=== PATIENT | male | born 1940 | race Caucasian/White ===

== ENCOUNTER 2022-05-25 18:19 | Emergency (ER) | payer MEDICARE, BC, SELFPAY ==
--- NOTE | 2022-05-25 18:43 | ED.GENADULT ---
HPI - General Adult General Time Seen by Provider: 18:43 Date Seen: 05/25/22 Chief complaint: Weakness Stated complaint: Covid+, Weakness Time Seen by Provider: 05/25/22 18:39 Source: patient, RN notes reviewed and old records reviewed Mode of arrival: ambulatory Limitations: no limitations History of Present Illness HPI narrative: 82-year-old male who presents today with generalized weakness. Patient noted headache and body aches starting 3 days ago, 2 days ago took a COVID test which was positive. Complains of nasal congestion and sore throat, cough. No chest pain, shortness of breath, nausea, vomiting, or diarrhea. Tried taking aspirin for this with no improvement, took ibuprofen this morning with improvement of his headache and body aches. Has not taken anything since then. Reports fever to 105?. Related Data Allergies Allergy/AdvReac Type Severity Reaction Status Date / Time No Known Drug Allergies Allergy Verified 05/25/22 18:50 Review of Systems Status of ROS: Reports: 10 or more systems reviewed and unremarkable except as noted in History and below PFSH PFSH Social History Smoking Status: Never smoker Do you use any of these nicotine containing products: None Second hand tobacco smoke exposure: No How often do you have a drink containing alcohol: never How often do you have six or more drinks on one occasion: Never AUDIT-C Alcohol total score: 0 Non-prescribed substance use: denies use service: Yes Exam Narrative: Exam Narrative: General: Well-developed and well-nourished, no acute distress Head: Atraumatic and normocephalic Eyes: Pupils are equal reactive, extraocular motions intact, conjunctiva clear ENT: External nose and ears are normal, posterior pharynx without erythema or exudate Neck: No midline cervical tenderness, full spontaneous range of motion the neck, trachea midline, no adenopathy Heart: Regular rate and rhythm no murmurs or thrills Lungs: Clear to auscultation bilaterally without wheezes or crackles Abdomen: Soft, nontender, nondistended with active bowel sounds Musculoskeletal: No tenderness, deformity, or edema Neurologic: Awake, alert, and oriented x3, no gross focal neurologic deficits, cranial nerves intact as tested Psych: Mood and affect are appropriate Skin: No rashes Const: Vital Signs, click to edit/add: Vital Signs - 24 hr 05/25/22 18:51 Temperature 99.6 F Pulse Rate [Pulse Oximeter] 94 Respiratory Rate 24 Blood Pressure [Le ft Upper Arm] 134/83 Pulse Oximetry 98 Oxygen Delivery Me thod Room Air Course Course Hospital Course: Patient seen examined, prior records are reviewed. Differential diagnosis includes but not limited to COVID infection, influenza, urinary tract infection, electrolyte disturbance, dehydration. Patient recently diagnosed with COVID in now with generalized weakness. No hypoxia or respiratory distress, no tachycardia. Appears comfortable, lungs are clear. Fluids, Toradol, Decadron are given and plan to discharge with continued symptom treatment at home. Reevaluation(s) Reevaluation #1: Patient feels better after treatment. No respiratory distress, hypoxia, or increased work of breathing. Tolerating oral intake. Stable for discharge. Time: 20:30 Vital Signs Vital signs: Initial Vital Signs Temperature 99.6 F 05/25/22 18:51 Temperature Source Temporal Artery Scan 05/25/22 18:51 Pulse Rate 94 05/25/22 18:51 Pulse Rhythm 05/25/22 18:51 Respiratory Rate 24 05/25/22 18:51 Blood Pressure 134/83 05/25/22 18:51 Blood Pressure Mean 100 05/25/22 18:51 Blood Pressure Position Supine 05/25/22 18:51 Pulse Oximetry 98 05/25/22 18:51 Oxygen Delivery Method 05/25/22 18:51 Vital Signs Temperature 99.6 F 05/25/22 18:51 Pulse Rate 94 05/25/22 18:51 Respiratory Rate 24 05/25/22 18:51 Blood Pressure 134/83 05/25/22 18:51 Pulse Oximetry 98 05/25/22 18:51 Oxygen Delivery Method 05/25/22 18:51 Temperature 99.6 F 05/25/22 18:51 Pulse Rate 94 05/25/22 18:51 Respiratory Rate 24 05/25/22 18:51 Blood Pressure 134/83 05/25/22 18:51 Pulse Oximetry 98 05/25/22 18:51 Oxygen Delivery Method 05/25/22 18:51 Medical Decision Making Medical Records Medical records reviewed: Yes I reviewed the patient's medical records Lab Data Lab results reviewed: Yes I reviewed the patient's lab results Discharge Plan Discharge Clinical Impression: COVID-19 virus infection Patient Disposition: Home, Self-Care Condition: Stable Instructions: COVID-19 (Coronavirus Disease 2019) (ED) Additional Instructions: Continue Tylenol and ibuprofen alternating every 3 hours Lots of fluids and rest Return to the emergency department if you develop breathing difficulty, cannot tolerate oral intake, other concerns Activity Level: No Restrictions Discharge Diet: Regular Follow Up/Referrals: Oswald Saul MD [Primary Care Provider] - Stand Alone Forms: [employer] Info Instructions
[2022-05-25 18:51] VITALS: BP 134/83; PULSE 94; RESP 24; TEMP 37.6; O2SAT 98; BMI 23.7
[2022-05-25 19:30] VITALS: BP 121/69; PULSE 90; RESP 16; O2SAT 93
[2022-05-25] MEDS: 0.9 % SODIUM CHLORIDE 1000 ml 1,000 ML IV (19:35)
[2022-05-25] MEDS: KETOROLAC 15 MG/ML inj IVP (19:36)
[2022-05-25] MEDS: dexAMETHasone 10 MG/ML inj 6 MG IVP (19:36)
[2022-05-25 20:00] VITALS: BP 124/72; PULSE 88; RESP 18; TEMP 38.1; O2SAT 94
[2022-05-25 20:39] VITALS: BP 131/74; PULSE 83; RESP 16; O2SAT 94
== END 2022-05-25 21:01 | disposition home or self-care (01) ==
LOC: ED 19:28
PROVIDERS: Emergency Provider Family Medicine; PCP Family Medicine
DX: U07.1 COVID-19 (principal)
CPT/HCPCS: 96374; 96375; 99283; 99284; J1100; J1885; J7030

== ENCOUNTER 2023-02-09 11:17 | Inpatient (IN) | payer MEDICARE, BC, SELFPAY ==
[2023-02-09 11:32] VITALS: O2SAT 96
[2023-02-09 11:33] VITALS: BP 113/73; PULSE 91; RESP 18; TEMP 37; O2SAT 95
--- NOTE | 2023-02-09 11:49 | ED_ITS ---
HPI - General Adult General Chief complaint: Rib Pain Stated complaint: Possibly broken ribs Time Seen by Provider: 02/09/23 11:49 History of Present Illness HPI narrative: pt was leaning over the gate of a truck Sunday and felt pain in his right ribs, fornt and back of chest hurt with breathing and movement 83-year-old man presenting to the emergency department with complaint of spasms of pain in the right low anterior chest. Three days ago he had been leaning over the gate a truck with this right side and reached a little bit farther. Did not think much of it at the time but over the next couple of days increasing pain. Hurts to breathe or move. He typically has a rather high pain tolerance. Not complaining of lightheadedness. Has not had much to eat or drink really having to force himself over the last couple of days due to discomfort. Does report some discomfort into his right shoulder area as well. He otherwise is not describing any radicular symptoms i.e. into extremities. This was not a high impact event. Generally healthy. Does not take any medications. Related Data Previous Rx's Medication Instructions Recorded acetaminophen 325 mg tablet 650 mg (2 x 325 mg) PO QID 10 days 02/14/23 #80 tabs Allergies Allergy/AdvReac Type Severity Reaction Status Date / Time No Known Drug Allergies Allergy Verified 10/22/22 22:51 Review of Systems Status of ROS: Reports: 6 or more systems reviewed and unremarkable except as noted in History and below [facility] Medical History (Updated 02/14/23 @ 15:33 by Hayden Romero MD) Schatzki's ring ?K22.2 - Esophageal obstruction (ICD-10) Esophageal obstruction due to food impaction ?K22.2 - Esophageal obstruction (ICD-10) ?T18.128A - Food in esophagus causing other injury, initial encounter (ICD- 10) COVID-19 virus infection ?U07.1 - COVID-19 (ICD-10) Surgical History (Updated 02/09/23 @ 18:46 by Ashely Vickers MD) S/P ORIF (open reduction internal fixation) fracture ?Z98.890 - Other specified postprocedural states (ICD-10) ?Z87.81 - Personal history of (healed) traumatic fracture (ICD-10) History of cataract surgery ?Z98.49 - Cataract extraction status, unspecified eye (ICD-10) Hx of hernia repair ?Z98.890 - Other specified postprocedural states (ICD-10) ?Z87.19 - Personal history of other diseases of the digestive system (ICD-10) Hx of cholecystectomy ?Z90.49 - Acquired absence of other specified parts of digestive tract (ICD- 10) Hx of appendectomy ?Z90.49 - Acquired absence of other specified parts of digestive tract (ICD- 10) Social History (Updated 02/09/23 @ 18:48 by Ashely Vickers MD) Narrative: Lives independently. since summer 2022. Has three adult sons would share medical decision making duties if needed. Retired gam[employer]. No concerning tobacco or ETOH use. Full Code but would not want to be on a machine for any extended period of time. What is your current living situation?: I presently have a place to live Problems where you live: no known problems Problems where you live details: NA In the past 12 months, utilities in danger of being shut off: no In the past 12 mos, have been you worried that your food would run out before you had money to buy more?: never true In the past 12 mos, the food you bought just didn't last and you didn't have m oney to buy more?: never true Highest level of school completed/degree received: Associate degree: occupational, technical, vocational program Smoking Status: Never smoker Do you use any of these nicotine containing products: None Second hand tobacco smoke exposure: No How often do you have a drink containing alcohol: never How often do you have six or more drinks on one occasion: Never AUDIT-C Alcohol total score: 0 Non-prescribed substance use: denies use Caffeine: Yes How often does anyone, including family, friends and others, physically hurt you : never How often does anyone, including family, friends and others, insult or talk down to you: never How often does anyone, including family, friends and others, threaten you with harm: never How often does anyone, including family, friends and others, scream or curse at you: never service: Yes Exam Narrative: Exam Narrative: Accompanied here by his son. Seated upright at the edge of the bed blanket over shoulders hunched forward just a little bit. Splinting in apparent pain. Does wince with apparent spasm of pain. Skin is warm and dry. I do not appreciate any swelling, erythema, bruising over his chest. Well-perfused extremities. Moving all extremities really without difficulty although bringing his right leg in particular up to the bed causes pain. Neck is supple nontender. Back nontender. He is quite tender to palpation in the right low ribs lateral clavicle line. Also tender in the right upper quadrant abdomen. This gets tense and seems to be spasm is pain. Difficult to discern whether not that is independent of the room rib discomfort. Abdomen otherwise is soft and nontender. Lungs are clear though again splinting difficult to take a deep breath. Heart in a regular rate and rhythm. Does not have pain to palpation over the right upper back and shoulder and able to throw his arm up over his head without much difficulty. Const: Vital Signs, click to edit/add: Vital Signs - 24 hr 02/09/23 11:33 Temperature 98.6 F Pulse Rate [Right Pulse Oximeter] 91 Respiratory Rate 18 Blood Pressure [Ri ght Upper Arm] 113/73 Pulse Oximetry 95 Oxygen Delivery Me thod Room Air Documenting provider has reviewed patient's vital signs: yes Course Course Hospital Course: History of present illness: Young Coles is a 83 year old male who presented to the ED with his son this afternoon for concerns of right sided chest pain after a muscular injury at home. Three days ago, he was leaning with his right side over his truck and reaching for something. He had mild discomfort at the time, which has worsened throughout the last few days. Young describes the pain as a spasm in his right upper quadrant. He has not found any helpful remedies at home and he has not been able to sleep secondary to pain. No fever or symptoms of illness. Does occasionally feel chilled with his pain flares. Today, he was having difficulty breathing secondary to discomfort and called his PCPs office, who recommended ED visit. ER course and findings: - CT revealed a small subcapular fluid collection along the right liver, concerning for hematoma - No large liver laceration or hemorrhage, no known rib fractures - Incidentally right basilar pleural effusion with compressive atelectasis and/or infiltrates - hemodynamically stable - could not achieve pain control for discharge; patient received IV fentanyl and lorazepam but still was unable to ambulate - general surgery consulted, recommends monitoring and pain control Initially attempted to control pain with as needed acetaminophen and hydromorphone. Although the pain was in great measure treated sufficiently with the use of as needed hydromorphone and acetaminophen, he became markedly confused and tired and weak in consequence of these medications. He and his son's thought for sure was the acetaminophen. We discussed this and they were agreeable to attempt schedule acetaminophen and only as needed oral oxycodone at a low dose of 2.5 mg p.o. q.4 hours. Once we stopped using the opioids, his mentation rapidly normalized, and his weakness rapidly resolved. He was then able to demonstrate clearly his independence. Thus he is discharged home with follow-up as indicated. Vital Signs Vital signs: Initial Vital Signs Pulse Oximetry 96 02/09/23 11:32 Vital Signs Pulse Oximetry 96 02/09/23 11:32 Temperature 98.1 F 02/14/23 11:53 Pulse Rate 65 02/14/23 11:53 Respiratory Rate 16 02/14/23 11:53 Blood Pressure 117/61 02/14/23 11:53 Pulse Oximetry 94 02/14/23 11:53 Oxygen Delivery Method Room Air 02/14/23 11:53 Medical Decision Making MDM Narrative Medical decision making narrative: I am concerned regarding the degree of pain I am perceiving in somebody who I think has a rather high pain tolerance. Concern of potential liver laceration. I would suspect at a minimum rib tip injury with secondary muscle spasming. IV is established. I did discuss basic imaging and labs but more certainly would be obtained with CT imaging. Ultrasound I think still would result in further imaging I think. I think some IV hydration given lack of ability for self-care recently and will trial a dose of Dilaudid along with Lidoderm patch. Did take the edge off his pain a little. Persistent complaints though of spasms of pain prompted re-dosing of Dilaudid which did not help much either. Then with more pain needs prior to imaging once we cleared poc creatinine (reported to me as 0.4), given fentanyl and lorazepam. On reassessment, has been able to sleep but any movement markedly increases his pain again. CT imaging does show some liver cysts. No clear rib injury. No liver laceration however there is a small subcapsular bleed. Is able to very slowly ambulate with marked pain. Discuss this case with General surgery left though I can not imagine any intervention at this time. They concur. Will check baseline hemoglobin however I think that if anemia is present it is unlikely related to this bleed. I think the pain is probably more related to rib tip injury with resulting muscle spasm. Perhaps the ache in the shoulder is related to the subcapsular bleed. Have discussed with hospitalist for admission for pain control primarily. Medical Records Medical records reviewed: Yes I reviewed the patient's medical records Lab Data Lab results reviewed: Yes I reviewed the patient's lab results Labs: Lab Results 02/09/23 02/10/23 02/11/23 Range/Units 19:14 06:29 05:54 WBC 10.34 11.06 H 10.02 (4.50-11.00) K/uL RBC 4.30 4.15 L 4.03 L (4.30-5.90) m/uL Hgb 12.5 L 12.0 L 11.5 L (13.5-17.5) gm/dL Hct 38.5 37.3 35.9 L (37.0-53.0) % MCV 90 90 89 (80-100) fL MCH 29 29 29 (26-34) pg MCHC 33 32 32 (32-36) gm/dL RDW Coeff of Russell 12.6 12.5 12.4 (11.5-15.5) % Plt Count 292 284 300 (140-440) K/uL Neut % (Auto) 79.8 H 76.2 H 74.5 H (42.0-72.0) % Lymph % (Auto) 10.8 L 11.3 L 12.7 L (20-44) % [place] % (Auto) 7.4 10.1 9.9 (0.0-11.0) % Eos % (Auto) 1.4 1.9 2.4 (0.0-7.0) % Baso % (Auto) 0.5 0.3 0.3 (0.0-3.0) % Neut # (Auto) 8.30 H 8.40 H 7.50 H (1.7-7.0) K/uL Lymph # (Auto) 1.10 1.20 1.30 (0.90-2.90) K/uL [place] # (Auto) 0.80 1.10 H 1.00 H (0.00-0.90) K/UL Eos # (Auto) 0.14 0.20 0.24 (0.00-0.50) K/uL Baso # (Auto) 0.05 0.00 0.03 (0.00-0.30) K/uL Abs Immat Gran (auto) 0.01 0.00 0.02 (0.00-0.30) K/uL Imm/Tot Granulo (auto) 0.1 0.2 0.2 % INR 1.10 1.19 H (0.91-1.10) VBG pH (7.32-7.43) VBG pCO2 (40-50) mmHG VBG pO2 (25-47) mmHG VBG HCO3 (21-28) mmol/L Sodium 136 137 134 L (135-149) mmol/L Potassium 4.2 4.5 4.2 (3.6-5.1) mmol/L Chloride 103 103 102 (96-114) mmol/L Carbon Dioxide 25 26 25 (20-32) mmol/L Anion Gap 8 8 7 (7-15) mEq/L BUN 22 21 20 (7-30) mg/dL Creatinine 1.2 1.2 1.2 (0.5-1.5) mg/dL Estimated Creat Clear 46.05 46.05 46.05 Estimated GFR 59 59 59 ml/min Glucose 143 H 105 106 (60-115) mg/dL Calcium 8.5 8.7 8.3 L (8.4-10.6) mg/dL Total Bilirubin 0.7 0.6 0.6 (0.1-1.5) mg/dL Direct Bilirubin 0.0 (0.0-0.5) mg/dL AST 20 19 20 (12-35) U/L ALT 16 16 16 (4-50) U/L Alkaline Phosphatase 74 75 70 (40-150) U/L C-Reactive Protein 18.4 H (0.5-1.0) mg/dL Total Protein 6.8 6.5 6.1 (6.0-8.3) g/dL Albumin 3.6 3.5 3.1 L (3.3-5.0) g/dL Lab Acknowledgement 02/11/23 02/12/23 Range/Units 14:07 06:04 WBC (4.50-11.00) K/uL RBC (4.30-5.90) m/uL Hgb 11.0 L (13.5-17.5) gm/dL Hct (37.0-53.0) % MCV (80-100) fL MCH (26-34) pg MCHC (32-36) gm/dL RDW Coeff of Russell (11.5-15.5) % Plt Count (140-440) K/uL Neut % (Auto) (42.0-72.0) % Lymph % (Auto) (20-44) % [place] % (Auto) (0.0-11.0) % Eos % (Auto) (0.0-7.0) % Baso % (Auto) (0.0-3.0) % Neut # (Auto) (1.7-7.0) K/uL Lymph # (Auto) (0.90-2.90) K/uL [place] # (Auto) (0.00-0.90) K/UL Eos # (Auto) (0.00-0.50) K/uL Baso # (Auto) (0.00-0.30) K/uL Abs Immat Gran (auto) (0.00-0.30) K/uL Imm/Tot Granulo (auto) % INR (0.91-1.10) VBG pH 7.405 (7.32-7.43) VBG pCO2 42 (40-50) mmHG VBG pO2 42.0 (25-47) mmHG VBG HCO3 26 (21-28) mmol/L Sodium 135 (135-149) mmol/L Potassium 4.5 (3.6-5.1) mmol/L Chloride 102 (96-114) mmol/L Carbon Dioxide 27 (20-32) mmol/L Anion Gap 6 L (7-15) mEq/L BUN 23 (7-30) mg/dL Creatinine 1.1 (0.5-1.5) mg/dL Estimated Creat Clear 50.24 Estimated GFR 66 ml/min Glucose 98 (60-115) mg/dL Calcium 8.7 (8.4-10.6) mg/dL Total Bilirubin (0.1-1.5) mg/dL Direct Bilirubin (0.0-0.5) mg/dL AST (12-35) U/L ALT (4-50) U/L Alkaline Phosphatase (40-150) U/L C-Reactive Protein 15.9 H (0.5-1.0) mg/dL Total Protein (6.0-8.3) g/dL Albumin (3.3-5.0) g/dL Lab Acknowledgement Test Added Discharge Plan Discharge Clinical Impression: Rib pain on right side, Muscle spasm, Subcapsular hematoma of liver Patient Disposition: Admitted As Observation Discharge Location: [facility] Condition: Improved Activity Level: No Restrictions, Activity as Tolerated and Other Activity Detail: Avoid jarring events, blunt trauma, or heavy pressure to area of involvement of right chest and abdomen. Discharge Diet: Regular
--- NOTE | 2023-02-09 12:25 | CRLHL7_ITS ---
For Patients: As a result of the Century Cures Act, medical imaging exams and procedure reports are released immediately into your electronic medical record. You may view this report before your referring provider. If you have questions, please contact your health care provider. Indication: Evaluate for right lower rib, liver injury, right-sided abdominal pain Technique: Volumetric multidetector CT images of the abdomen were obtained after the administration of intravenous contrast. 83 cc Isovue 370 low osmolar intravenous contrast Comparison: None available. Findings: There is a small right basilar pleural effusion with compressive atelectasis and/or infiltrates within the lung bases. The partially visualized ribs are grossly intact. There is demonstration of a minimal subcapsular fluid collection along the right liver. Cystic change of the inferior right liver lobe is appreciated. There is mild intrahepatic biliary ductal dilatation. The portal vein is patent. The gallbladder is surgically absent. There is dilated common bile duct. Calcified splenic granulomas. The spleen is otherwise normal in enhancement. There is a small hiatal hernia with mild thickening of the gastric antrum with gastric mucosal hyperemia. There is moderate pancreatic atrophy with demonstration of pancreatic cystic changes within the pancreatic head measuring 1.7 centimeters likely representing an IPMN. The adrenal glands are unremarkable. The kidneys demonstrate preserved corticomedullary differentiation and cystic changes bilaterally. There is moderate to severe stool seen within the partially visualized colon. There is no significant mesenteric or retroperitoneal lymph nodes. The aorta is nonaneurysmal. There is no significant atherosclerotic disease appreciated. There is no free fluid or free air. The anterior abdominal wall is intact without significant hernias. The thoracolumbar spine is grossly intact. The vertebral body heights are grossly maintained with minimal retrolisthesis of L1 on L2. Impression: Demonstration of a small subcapsular fluid collection along the right liver which may represent a small subcapsular hematoma. No evidence of large liver laceration or hemorrhage. Grossly intact adjacent ribs. Incidental note made of right basilar pleural effusion with adjacent compressive atelectasis and/or infiltrates. No other acute abnormalities are appreciated. Please note that all CT scans at this facility use dose modulation, iterative reconstruction, and/or weight-based dosing when appropriate to reduce radiation dose to as low as reasonably achievable. Dictated by Shane Son MD @ 02/09/2023 3:33:35 PM (Electronically Signed)
[2023-02-09] MEDS: 0.9 % SODIUM CHLORIDE 1000 ml 1,000 ML IV (13:03)
[2023-02-09] MEDS: HYDROmorphone 0.5 mg/0.5 ml inj IVP ×2 (13:03→13:51)
[2023-02-09] MEDS: LIDOCAINE 5% PATCH 1 PATCH TRANSDERMA (13:04)
[2023-02-09] MEDS: LORazepam 2 MG/ML inj 0.5 MG IVP (14:45)
[2023-02-09] MEDS: fentaNYL 100 MCG/2 ML inj 75 MCG IVP (14:45)
--- NOTE | 2023-02-09 17:37 | ED.NURSE ---
Pt declined pain medications before coming to med surg floor. Pt does state he is hungry. Report given to med/surg nurse. Pt transporting at this time to floor.
[2023-02-09 18:37] VITALS: BP 133/71; PULSE 91; RESP 16; RESP 18; TEMP 37.6; O2SAT 94; BMI 21.6
--- NOTE | 2023-02-09 18:43 | P.IMHP_ITS ---
Hospitalist- H&P: HPI History of Present Illness Date Seen: 02/09/23 Chief complaint: Possibly broken ribs Narrative: Young Coles is a 83 year old male who presented to the ED with his son this afternoon for concerns of right sided chest pain after a muscular injury at home. Three days ago, he was leaning with his right side over his truck and reaching for something. He had mild discomfort at the time, which has worsened throughout the last few days. Young describes the pain as a spasm in his right upper quadrant. He has not found any helpful remedies at home and he has not been able to sleep secondary to pain. No fever or symptoms of illness. Does occasionally feel c hilled with his pain flares. Today, he was having difficulty breathing secondary to discomfort and called his PCPs office, who recommended ED visit. ER course and findings: - CT revealed a small subcapular fluid collection along the right liver, concerning for hematoma - No large liver laceration or hemorrhage, no known rib fractures - Incidentally right basilar pleural effusion with compressive atelectasis and/or infiltrates - hemodynamically stable - could not achieve pain control for discharge; patient received IV fentanyl and lorazepam but still was unable to ambulate - general surgery consulted, recommends monitoring and pain control Medical history is minimal and updated below. No history of spontaneous bleeding, no history of blood clots. PCP is Dr. Saul locally. Review of Systems Status of ROS: Reports: 10 or more systems reviewed and unremarkable except as noted in History and below Narrative: - has not had a BM this week, thinks this is related to not eating [facility] Medical History (Updated 02/09/23 @ 18:57 by Ashely Vickers MD) Schatzki's ring ?K22.2 - Esophageal obstruction (ICD-10) Esophageal obstruction due to food impaction ?K22.2 - Esophageal obstruction (ICD-10) ?T18.128A - Food in esophagus causing other injury, initial encounter (ICD- 10) COVID-19 virus infection ?U07.1 - COVID-19 (ICD-10) Surgical History (Updated 02/09/23 @ 18:46 by Ashely Vickers MD) S/P ORIF (open reduction internal fixation) fracture ?Z98.890 - Other specified postprocedural states (ICD-10) ?Z87.81 - Personal history of (healed) traumatic fracture (ICD-10) History of cataract surgery ?Z98.49 - Cataract extraction status, unspecified eye (ICD-10) Hx of hernia repair ?Z98.890 - Other specified postprocedural states (ICD-10) ?Z87.19 - Personal history of other diseases of the digestive system (ICD-10) Hx of cholecystectomy ?Z90.49 - Acquired absence of other specified parts of digestive tract (ICD- 10) Hx of appendectomy ?Z90.49 - Acquired absence of other specified parts of digestive tract (ICD- 10) Social History (Updated 02/09/23 @ 18:48 by Ashely Vickers MD) Narrative: Lives independently. since summer 2022. Has three adult sons would share medical decision making duties if needed. Retired [employer]. No concerning tobacco or ETOH use. Full Code but would not want to be on a machine for any extended period of time. Smoking Status: Never smoker Do you use any of these nicotine containing products: None Second hand tobacco smoke exposure: No How often do you have a drink containing alcohol: never How often do you have six or more drinks on one occasion: Never AUDIT-C Alcohol total score: 0 Non-prescribed substance use: denies use service: Yes Meds Home Medications and Allergies Home Medications Medication Instructions Recorded Confirmed Type No Known Home Medications 02/09/23 02/09/23 History Home Medication Comments: No regular medications Allergies Allergy/AdvReac Type Severity Reaction Status Date / Time No Known Drug Allergies Allergy Verified 10/22/22 22:51 Exam Narrative: Exam Narrative: GEN: Alert and oriented, appears uncomfortable but nontoxic HEENT: EOMIs bilaterally, no scleral icterus CV: RRR, No concerning murmurs R: LCTA bilaterally without concerning wheezing. Not taking a deep breath 2/2 discomfort Ab: Guarding 2/2 discomfort, no distension Ext: wwp, no concerning edema Skin: No concerning skin lesions or rashes on exposed skin Neuro: Nonfocal Psych: Appropriate Const: Vital Signs, click to edit/add: Vital Signs - 24 hr 02/09/23 11:32 02/09/23 11:33 Temperature 98.6 F Pulse Rate [Right Pulse Oximeter] 91 Respiratory Rate 18 Blood Pressure [Ri ght Upper Arm] 113/73 Pulse Oximetry 96 95 Oxygen Delivery Me thod Room Air Assessment and Plan Assessment and plan (1) Subcapsular hematoma of liver: Problem comment: - follow hemoglobin, INR, LFTs - pain control - therapy evaluations - IS for associated atelectasis on imaging Status: Acute (2) Muscle spasm: Status: Acute Plan - Per above - SCDs for prophylaxis, pharmacologic prophylaxis contraindicated - son Norman updated at bedside, questions answered
[2023-02-09 19:00] VITALS: BP 120/60; PULSE 90; RESP 18; TEMP 37.9; O2SAT 94
--- NOTE | 2023-02-09 19:05 | PC.NURSE ---
Pt arrived to floor from ED around 1744. Pt alert and oriented. Pt has pain with movement/position and taking breathes. Son at bedside through out admission. VSS.
[2023-02-09 19:52] LABS: Basophils Absolute Auto 0.05 K/uL (0.00-0.30); Basophils Percent Auto 0.5 % (0.0-3.0); Eosinophils Absolute Auto 0.14 K/uL (0.00-0.50); Eosinophils Percent Auto 1.4 % (0.0-7.0); Hematocrit 38.5 % (37.0-53.0); Hemoglobin* 12.5 gm/dL (13.5-17.5); Immature Granulocytes Abs Auto 0.01 K/uL (0.00-0.30); Immature Granulocytes Pct Auto 0.1 %; Lymphocytes Percent Auto 10.8 % (20-44); Mean Corpuscular HGB Conc 33 gm/dL (32-36); Mean Corpuscular Hemoglobin 29 pg (26-34); Mean Corpuscular Volume 90 fL (80-100); Monocytes Percent Auto 7.4 % (0.0-11.0); Neutrophils Percent Auto 79.8 % (42.0-72.0); Platelet Count* 292 K/uL (140-440); RDW Coefficient of Variation % 12.6 % (11.5-15.5); White Blood Count* 10.34 K/uL (4.50-11.00)
[2023-02-09 19:55] LABS: Slide Review Reflex No
[2023-02-09 20:08] LABS: Albumin* 3.6 g/dL (3.3-5.0)
[2023-02-09 20:09] LABS: Chloride* 103 mmol/L (96-114); Potassium* 4.2 mmol/L (3.6-5.1); Prothrombin Time 14.8 Seconds; Sodium* 136 mmol/L (135-149)
[2023-02-09 20:11] LABS: Bilirubin Total* 0.7 mg/dL (0.1-1.5); Creatinine* 1.2 mg/dL (0.5-1.5); Est. Creatinine Clearance* 46.05; Estimated Glomerular Filt Rate 59 ml/min
[2023-02-09 20:12] LABS: Alanine Aminotransferase* 16 U/L (4-50); Alkaline Phosphatase* 74 U/L (40-150); Anion Gap 8 mEq/L (7-15); Aspartate Amino Transferase* 20 U/L (12-35); Blood Urea Nitrogen* 22 mg/dL (7-30); Calcium* 8.5 mg/dL (8.4-10.6); Carbon Dioxide* 25 mmol/L (20-32); Glucose* 143 mg/dL (60-115); Total Protein* 6.8 g/dL (6.0-8.3)
[2023-02-09] MEDS: OXYCODONE 5 MG TABLET PO (20:23)
[2023-02-09] MEDS: SODIUM CHLORIDE 0.9 % (FLUSH) 10 ML SYRINGE 5 ML IVF (20:28)
[2023-02-09 23:00] VITALS: BP 130/70; PULSE 89; RESP 16; TEMP 37.5; O2SAT 92; O2SAT 94
[2023-02-10] VITALS (8 sets, daily range): BP systolic 105–125; BP diastolic 47–75; PULSE 78–94; RESP 12–18; TEMP 36.1–37.5; O2SAT 92–97
[2023-02-10] MEDS: OXYCODONE 5 MG TABLET PO ×3 (00:42→13:15)
--- NOTE | 2023-02-10 03:41 | PC.NURSE ---
PATIENT PLEASANT AND COOPERATIVE, ALERT AND ORIENTED, UP A1, DECLINING TO USE A WALKER, SLOW TO MOVE, PER PATIENT THIS IS RELATED TO INCREASED PAIN ON RIGHT SIDE WITH MOVEMENT, RATING PAIN ON RIGHT SIDE AT REST 5/10 BUT UP TO 10/10 WITH MOVEMENT, USING PRN OXYCODONE AND REST FOR MANAGEMENT.
[2023-02-10 07:22] LABS: Basophils Percent Auto 0.3 % (0.0-3.0); Eosinophils Percent Auto 1.9 % (0.0-7.0); Hematocrit 37.3 % (37.0-53.0); Immature Granulocytes Pct Auto 0.2 %; Lymphocytes Percent Auto 11.3 % (20-44); Mean Corpuscular HGB Conc 32 gm/dL (32-36); Mean Corpuscular Hemoglobin 29 pg (26-34); Mean Corpuscular Volume 90 fL (80-100); Monocytes Percent Auto 10.1 % (0.0-11.0); Neutrophils Percent Auto 76.2 % (42.0-72.0); Platelet Count* 284 K/uL (140-440); RDW Coefficient of Variation % 12.5 % (11.5-15.5); Red Blood Count 4.15 m/uL (4.30-5.90); White Blood Count* 11.06 K/uL (4.50-11.00)
[2023-02-10 07:28] LABS: Slide Review Reflex No
[2023-02-10 07:42] LABS: Chloride* 103 mmol/L (96-114)
[2023-02-10 07:43] LABS: Albumin* 3.5 g/dL (3.3-5.0); Potassium* 4.5 mmol/L (3.6-5.1); Sodium* 137 mmol/L (135-149)
[2023-02-10 07:45] LABS: Bilirubin Total* 0.6 mg/dL (0.1-1.5); Creatinine* 1.2 mg/dL (0.5-1.5); Est. Creatinine Clearance* 46.05; Estimated Glomerular Filt Rate 59 ml/min
[2023-02-10 07:46] LABS: Alanine Aminotransferase* 16 U/L (4-50); Alkaline Phosphatase* 75 U/L (40-150); Anion Gap 8 mEq/L (7-15); Aspartate Amino Transferase* 19 U/L (12-35); Blood Urea Nitrogen* 21 mg/dL (7-30); Calcium* 8.7 mg/dL (8.4-10.6); Carbon Dioxide* 26 mmol/L (20-32); Glucose* 105 mg/dL (60-115); Total Protein* 6.5 g/dL (6.0-8.3)
[2023-02-10] MEDS: MORPHINE 4 MG/ML INJ IVP ×2 (08:53→16:28)
--- NOTE | 2023-02-10 09:55 | REH.OT ---
Orders received for PT/OT. Patient having pain issues and nursing requested therapies wait until on 02/11/23.
--- NOTE | 2023-02-10 10:11 | P.IMPN_ITS ---
Progress Note: A&P Assessment and plan (1) Subcapsular hematoma of liver: Problem details: - follow hemoglobin, INR, LFTs - pain control - therapy evaluations - IS for associated atelectasis on imaging anticipate will need short term rehab lives alone; recently Status: Acute Assessment and Plan: anticipate will need short term rehab lives alone; recently (2) Muscle spasm: Status: Acute (3) Rib pain on right side: Problem details: attemp cxr again this afternoon Status: Acute Subjective Date Seen: 02/10/23 Interval history: patient having increased RUQ/Rib pain was unable to tolerate cxr due to pain given IV morphine this AM son updated (visiting from [place]) was able to swallow oxycodone pills Exam Narrative: Exam Narrative: Gen: appears uncomfortable HEENT: NCAT EOMI mmm CV: RRR normal s1 s2 Lungs: CTAB Abd: Soft,nt, nd Neuro: Alert, CN grossly intact; nonfocal screening?exam Psych: appropriate affect MSK: age appropriate muscle mass Skin; Warm, dry no rash on face Const: Vital Signs, click to edit/add: Vital Signs - 24 hr 02/09/23 11:32 02/09/23 11:33 02/09/23 18:37 Temperature 98.6 F 99.6 F Pulse Rate [Pulse Oximeter] 91 Pulse Rate [Right Pulse Oximeter] 91 Respiratory Rate 18 18 Blood Pressure [Ri ght Arm] 133/71 Blood Pressure [Ri ght Upper Arm] 113/73 Pulse Oximetry 96 95 94 Oxygen Delivery Me thod Room Air Room Air 02/09/23 18:37 02/09/23 19:00 02/09/23 23:00 Temperature 100.3 F H Pulse Rate [Pulse Oximeter] 90 Pulse Rate [Right Pulse Oximeter] Respiratory Rate 16 18 16 Blood Pressure [Ri ght Arm] 120/60 Blood Pressure [Ri ght Upper Arm] Pulse Oximetry 94 94 Oxygen Delivery Me thod Room Air Room Air 02/09/23 23:00 02/09/23 23:00 02/10/23 03:00 Temperature 99.5 F Pulse Rate [Pulse Oximeter] 89 Pulse Rate [Right Pulse Oximeter] Respiratory Rate 16 16 Blood Pressure [Ri ght Arm] 130/70 Blood Pressure [Ri ght Upper Arm] Pulse Oximetry 94 92 Oxygen Delivery Me thod Room Air Room Air Labs Labs: Laboratory Results - last 24 hr 02/09/23 02/10/23 19:14 06:29 WBC 10.34 11.06 H RBC 4.30 4.15 L Hgb 12.5 L 12.0 L Hct 38.5 37.3 MCV 90 90 MCH 29 29 MCHC 33 32 RDW Coeff of Russell 12.6 12.5 Plt Count 292 284 Neut % (Auto) 79.8 H 76.2 H Lymph % (Auto) 10.8 L 11.3 L Cory[place] % (Auto) 7.4 10.1 Eos % (Auto) 1.4 1.9 Baso % (Auto) 0.5 0.3 Neut # (Auto) 8.30 H 8.40 H Lymph # (Auto) 1.10 1.20 Cory[place] # (Auto) 0.80 1.10 H Eos # (Auto) 0.14 0.20 Baso # (Auto) 0.05 0.00 Abs Immat Gran (auto) 0.01 0.00 Imm/Tot Granulo (auto) 0.1 0.2 INR 1.10 Sodium 136 137 Potassium 4.2 4.5 Chloride 103 103 Carbon Dioxide 25 26 Anion Gap 8 8 BUN 22 21 Creatinine 1.2 1.2 Estimated Creat Clear 46.05 46.05 Estimated GFR 59 59 Glucose 143 H 105 Calcium 8.5 8.7 Total Bilirubin 0.7 0.6 AST 20 19 ALT 16 16 Alkaline Phosphatase 74 75 Total Protein 6.8 6.5 Albumin 3.6 3.5
--- NOTE | 2023-02-10 14:06 | ONC.NURNOTE ---
Addendum entered by Lakisha Blank RN 02/10/23 14:44: using the IS hourly WA up to 1500. easily awaken. vs wnl. enc turn and ROM hourly. RT arm limited ROM due to RT side pain. Original Note: this am pt was in extreme pain. states he woke at 7am with pain of 10. md aware. MS 4mg iv and Oxycontin 5mg given with relief. cont o2 sats. kris a meal. vs wnl. LS clear. heart reg. note pt was unable to take tylenol crushed in applesauce. Was able to swallow small mill like oxy with water and straw. states took Flexeril years ago and it made him feel awful. stating heard words but didnt understand them. so hesitent to tale it again. enc him to put his call light on at night if in pain. enc tcdb and is able to get it to 100.
--- NOTE | 2023-02-10 15:10 | PC.NURSE ---
abd sl distended tympanic. no pain on palpitation. no guarding or abd pain. poss bs 4 quad. distant. denies pain. unsure of last bm or flatus. bladder scanned for 26cc.
--- NOTE | 2023-02-10 15:34 | CRLHL7_ITS ---
For Patients: As a result of the Century Cures Act, medical imaging exams and procedure reports are released immediately into your electronic medical record. You may view this report before your referring provider. If you have questions, please contact your health care provider. INDICATION: Follow up possible small hepatic subcapsular hematoma TECHNIQUE: Volumetric helical scanning of the abdomen and pelvis was performed without contrast material. Coronal and sagittal reconstructions were obtained. COMPARISON: Abdomen/pelvis CT of 02/09/2023 FINDINGS: The small subcapsular fluid collection along the lateral aspect of the right hepatic lobe appears unchanged. The liver is otherwise unremarkable except for a small cyst in the inferior aspect of segment 6. Postop changes of cholecystectomy are again demonstrated. The bile ducts are within normal limits. The spleen, adrenal glands and pancreas are negative. The kidneys are unremarkable. No lymphadenopathy is evident. No free fluid is demonstrated. The bowel is unremarkable except for colonic diverticulosis. A small fat-containing direct right inguinal hernia is noted. The prostate is moderate to markedly enlarged. A small right pleural effusion is demonstrated and is increased from the previous study. Dependent atelectasis in both lower lobes is noted. The heart size is within normal limits straight calcified coronary arterial plaque is demonstrated. IMPRESSION: 1. Small subcapsular fluid collection along lateral aspect of the right hepatic lobe unchanged. 2. Small right pleural effusion, increased. Please note that all CT scans at this facility use dose modulation, iterative reconstruction, and/or weight-based dosing when appropriate to reduce radiation dose to as low as reasonably achievable. Dictated by Noah Villegas MD @ 02/10/2023 5:43:13 PM (Electronically Signed)
[2023-02-10] MEDS: HYDROmorphone 0.5 mg/0.5 ml inj IVP (16:06)
[2023-02-10] MEDS: diazePAM 5 MG TABLET 2.5 MG PO (16:07)
[2023-02-10] MEDS: SODIUM CHLORIDE 0.9 % (FLUSH) 10 ML SYRINGE 5 ML IVF ×3 (16:15→20:30)
--- NOTE | 2023-02-10 22:04 | PC.NURSE ---
Shift note: Pt is alert and oriented. Continue to complain of pain of 3/10 to the right lateral chest. Pain increases to about 9 or 10 with movement and position change. MD ordered CT scan at 1630 with pre-med of diazepam 25mg, Hydromorphone 0.5, and Morphine 4mg. Treatment given and pt sent for the scan at 1655 and came at 1715. Vital signs are stable as per chart. Pt was able complete about 75% of dinner served. Pt preferred to sleep in semi-trujillo's position which according to pt reduces pain level. Abdomen appears distended, hypoactiev
--- NOTE | 2023-02-10 22:06 | PC.NURSE ---
Shift note: Pt is alert and oriented. Continue to complain of pain of 3/10 to the right lateral chest. Pain increases to about 9 or 10 with movement and position change. MD ordered CT scan at 1630 with pre-med of diazepam 25mg, Hydromorphone 0.5, and Morphine 4mg. Treatment given and pt sent for the scan at 1655 and brought back at 1715. Vital signs are stable as per chart. Pt was able complete about 75% of dinner served. Pt preferred to sleep in semi-trujillo's position which according to pt reduces pain level. Abdomen appeared distended with hypoactive bowel sound, no abdominal tenderness except at right lateral side.
[2023-02-11] VITALS (7 sets, daily range): BP systolic 98–128; BP diastolic 60–78; PULSE 76–93; RESP 16–20; TEMP 36.6–37.4; O2SAT 92–99
[2023-02-11] MEDS: OXYCODONE 5 MG TABLET PO ×5 (03:11→22:49)
[2023-02-11 06:37] LABS: Basophils Absolute Auto 0.03 K/uL (0.00-0.30); Basophils Percent Auto 0.3 % (0.0-3.0); Eosinophils Absolute Auto 0.24 K/uL (0.00-0.50); Eosinophils Percent Auto 2.4 % (0.0-7.0); Hematocrit 35.9 % (37.0-53.0); Hemoglobin* 11.5 gm/dL (13.5-17.5); Immature Granulocytes Abs Auto 0.02 K/uL (0.00-0.30); Immature Granulocytes Pct Auto 0.2 %; Lymphocytes Percent Auto 12.7 % (20-44); Mean Corpuscular HGB Conc 32 gm/dL (32-36); Mean Corpuscular Hemoglobin 29 pg (26-34); Mean Corpuscular Volume 89 fL (80-100); Monocytes Percent Auto 9.9 % (0.0-11.0); Neutrophils Percent Auto 74.5 % (42.0-72.0); Platelet Count* 300 K/uL (140-440); RDW Coefficient of Variation % 12.4 % (11.5-15.5); Red Blood Count 4.03 m/uL (4.30-5.90); White Blood Count* 10.02 K/uL (4.50-11.00)
[2023-02-11 06:40] LABS: Slide Review Reflex No
--- NOTE | 2023-02-11 06:44 | PC.NURSE ---
Pt alert and oriented x3. Afebrile. Pt reports pain 4/10 in RUQ that sometimes radiates to back, managed with PRN oxy. Pt?chest pain, SOB, N/V. Pt is tolerating reg diet and voiding. Pt is up A1 with walker gait belt but was bed rest for shift [id number]. Pt slept intermittently throughout night.??
[2023-02-11 06:56] LABS: INR 1.19 (0.91-1.10); Prothrombin Time 15.9 Seconds
[2023-02-11 06:58] LABS: Albumin* 3.1 g/dL (3.3-5.0)
[2023-02-11 06:59] LABS: Chloride* 102 mmol/L (96-114); Potassium* 4.2 mmol/L (3.6-5.1); Sodium* 134 mmol/L (135-149)
[2023-02-11 07:01] LABS: Anion Gap 7 mEq/L (7-15); Aspartate Amino Transferase* 20 U/L (12-35); Bilirubin Total* 0.6 mg/dL (0.1-1.5); Blood Urea Nitrogen* 20 mg/dL (7-30); Carbon Dioxide* 25 mmol/L (20-32); Creatinine* 1.2 mg/dL (0.5-1.5); Est. Creatinine Clearance* 46.05; Estimated Glomerular Filt Rate 59 ml/min; Total Protein* 6.1 g/dL (6.0-8.3)
[2023-02-11 07:02] LABS: Alanine Aminotransferase* 16 U/L (4-50); Alkaline Phosphatase* 70 U/L (40-150); Calcium* 8.3 mg/dL (8.4-10.6); Glucose* 106 mg/dL (60-115)
[2023-02-11] MEDS: SODIUM CHLORIDE 0.9 % (FLUSH) 10 ML SYRINGE 5 ML IVF ×2 (08:00→20:31)
[2023-02-11] MEDS: ACETAMINOPHEN 650 MG TABLET ER 1300 MG PO (08:11)
[2023-02-11] MEDS: SENNOSIDES/DOCUSATE TABLET 1 TAB PO (08:12)
--- NOTE | 2023-02-11 14:04 | PM.IMPN1 ---
Progress Note: A&P Assessment and plan (1) Subcapsular hematoma of liver: Problem details: - follow hemoglobin, INR, LFTs - pain control - therapy evaluations - IS for associated atelectasis on imaging anticipate will need short term rehab lives alone; recently Status: Acute Subjective Date Seen: 02/11/23 Interval history: Daily Progress Note - Hospital Medicine Day #: 3 CC: Right flank and right upper abdominal pain. Known liver subscapular hematoma. OVERNIGHT UPDATES FROM STAFF & MED, LAB, IMAGING UPDATES Difficulty sleeping. He complains of intermittent spasm. Reports poor appetite. Pain is reported as better. She worked with him for over an hour and he did, under his own power, get up out of the hospital bed and walk over to the recliner. Hemoglobin has drifted from a 12.5 baseline down to 11.5. Her INR 1.2 Sodium has dipped to 134 but otherwise normal electrolytes and normal renal function his baseline. CT abdomen 02/09 Demonstration of a small subcapsular fluid collection along the right liver which may represent a small subcapsular hematoma. No evidence of large liver laceration or hemorrhage. Grossly intact adjacent ribs. Incidental note made of right basilar pleural effusion with adjacent compressive atelectasis and/or infiltrates. CT abdomen pelvis 02/10 1. Small subcapsular fluid collection along lateral aspect of the right hepatic lobe unchanged. 2. Small right pleural effusion, increased. Objective: Vitals: see above Lungs: Clear. Cardiac: S1S2. Abdomen: Minimal touch makes him jump. Anxious. No significant abdominal pain when distracted. Disposition/Potential discharge - Likely to return to previous living situation. Today I spent 50minutes seeing the patient, reviewing Expanse and EPIC notes/diagnostics, discussing the care plan with our care time that includes social work, PT/OT, pharmacy, RT, custodial and documenting my impressions and plan in the medical record. Exam Const: Vital Signs, click to edit/add: Vital Signs - 24 hr 02/10/23 15:00 02/10/23 15:00 02/10/23 19:00 Temperature 98.5 F 99.1 F Pulse Rate [Pulse Oximeter] 78 87 Respiratory Rate 18 18 18 Blood Pressure [Ri ght Arm] 115/58 L 125/65 Pulse Oximetry 97 97 94 Oxygen Delivery Me thod Room Air Room Air Room Air 02/10/23 23:05 02/10/23 23:05 02/10/23 23:05 Temperature 99.5 F Pulse Rate [Pulse Oximeter] 93 93 Respiratory Rate 16 16 16 Blood Pressure [Ri ght Arm] 122/57 L Pulse Oximetry 94 94 Oxygen Delivery Me thod Room Air Room Air 02/11/23 03:05 02/11/23 07:00 02/11/23 07:00 Temperature 99.3 F Pulse Rate [Pulse Oximeter] 91 91 Respiratory Rate 16 16 16 Blood Pressure [Ri ght Arm] 116/78 Pulse Oximetry 94 95 Oxygen Delivery Me thod Room Air Room Air 02/11/23 07:00 02/11/23 12:51 Temperature 99.1 F 98.3 F Pulse Rate [Pulse Oximeter] 84 76 Respiratory Rate 16 16 Blood Pressure [Ri ght Arm] 127/67 98/60 Pulse Oximetry 94 95 Oxygen Delivery Me thod Room Air Room Air Labs Labs: Laboratory Results - last 24 hr 02/11/23 05:54 WBC 10.02 RBC 4.03 L Hgb 11.5 L Hct 35.9 L MCV 89 MCH 29 MCHC 32 RDW Coeff of Russell 12.4 Plt Count 300 Neut % (Auto) 74.5 H Lymph % (Auto) 12.7 L Charlton % (Auto) 9.9 Eos % (Auto) 2.4 Baso % (Auto) 0.3 Neut # (Auto) 7.50 H Lymph # (Auto) 1.30 Charlton # (Auto) 1.00 H Eos # (Auto) 0.24 Baso # (Auto) 0.03 Abs Immat Gran (auto) 0.02 Imm/Tot Granulo (auto) 0.2 INR 1.19 H Sodium 134 L Potassium 4.2 Chloride 102 Carbon Dioxide 25 Anion Gap 7 BUN 20 Creatinine 1.2 Estimated Creat Clear 46.05 Estimated GFR 59 Glucose 106 Calcium 8.3 L Total Bilirubin 0.6 Direct Bilirubin 0.0 AST 20 ALT 16 Alkaline Phosphatase 70 Total Protein 6.1 Albumin 3.1 L
[2023-02-11 15:00] LABS: C Reactive Protein* 18.4 mg/dL (0.5-1.0)
--- NOTE | 2023-02-11 15:28 | PC.NURSE ---
Patient reports difficulty swallowing tylenol and was hesitant to take this AM. meds crushed in A.S. Pt reports he does not tolerate tylenol combined with other medications, discussed a regimen to alternate tylenol and oxy around the clock in addition to icing. encouraged IS. encouraged ambulating to BR with walker and pt agreed this would be a good idea. Son at bedside and reviewed POC. abdomen distended. senna given this AM and pt reports flatus present. no BM yet. encouraged ambulation when able. compliant with SCD's.
--- NOTE | 2023-02-11 19:50 | PC.NURSE ---
Nursing Care Hours: [id number] Charge nurse took report at 1500, did assessment, VS, and answered call light until reported to scientific technical writer at 1730. Fagot Maker checked pt for pain, oxycodone given for pain 10/25. Assisted with reorder of dinner, ate 75%. Rechecked pt at 1830, pt content and resting comfortably.
[2023-02-12 02:15] VITALS: BP 112/57; PULSE 87; RESP 16; TEMP 37.1; O2SAT 92
--- NOTE | 2023-02-12 06:48 | PC.NURSE ---
Pt alert and oriented x3. Afebrile. Pt reports pain 5/10 in RUQ that continues to radiates to back, managed with PRN oxy. Pt?chest pain, SOB, N/V. Pt is tolerating reg diet and voiding. Pt is up A1 with walker gait belt. Pt slept intermittently throughout night.??
[2023-02-12 06:56] LABS: PCO2 VBG 42 mmHG (40-50); pH VBG 7.405 (7.32-7.43)
[2023-02-12 06:57] LABS: HCO3 VBG 26 mmol/L (21-28)
[2023-02-12 07:14] LABS: Chloride* 102 mmol/L (96-114); Sodium* 135 mmol/L (135-149)
[2023-02-12 07:15] LABS: Potassium* 4.5 mmol/L (3.6-5.1)
[2023-02-12 07:17] LABS: Creatinine* 1.1 mg/dL (0.5-1.5); Est. Creatinine Clearance* 50.24; Estimated Glomerular Filt Rate 66 ml/min
[2023-02-12 07:18] LABS: Anion Gap 6 mEq/L (7-15); Blood Urea Nitrogen* 23 mg/dL (7-30); Calcium* 8.7 mg/dL (8.4-10.6); Carbon Dioxide* 27 mmol/L (20-32); Glucose* 98 mg/dL (60-115)
[2023-02-12 08:00] VITALS: BP 120/61; PULSE 88; RESP 20; TEMP 37; O2SAT 94
[2023-02-12 08:07] LABS: C Reactive Protein* 15.9 mg/dL (0.5-1.0)
[2023-02-12] MEDS: OXYCODONE 5 MG TABLET PO (09:07)
[2023-02-12] MEDS: SODIUM CHLORIDE 0.9 % (FLUSH) 10 ML SYRINGE 5 ML IVF ×2 (09:09→20:37)
[2023-02-12 10:17] VITALS: BMI 21.6
[2023-02-12 12:00] VITALS: BP 103/64; PULSE 81; RESP 18; TEMP 36.5; O2SAT 94
--- NOTE | 2023-02-12 13:50 | PC.SOCIAL ---
Addendum entered by Dawn Cates LCSW 02/12/23 16:16: Son requested this business writer meet with patientYoung to answer his questions. Met with sons in patient's room. Patient was sleeping and could not wake up enough for conversation. Suggested trying again tomorrow 02/13/23. Social work to follow up as needed. Original Note: Discharge Planning; Met with son, patient was asleep. Preliminary discussion on Discharge planning. Son states that patientYoung lives at home alone. Spouse three months ago. Son states that patientYoung would not be able to return to home alone in this condition as no one is available to be with him 08/01. Son would like to look at a facility closer to [facility] where patient lives. Given printed listing of SNFs to look at. Social work to follow up as needed.
[2023-02-12 15:00] VITALS: BP 108/62; PULSE 78; RESP 18; TEMP 36.8; O2SAT 95; O2SAT 97
--- NOTE | 2023-02-12 15:20 | P.IMPN_ITS ---
Progress Note: A&P Assessment and plan (1) Subcapsular hematoma of liver: Problem details: - follow hemoglobin, INR, LFTs - pain control - schedule acetaminophen and decrease dose of oxycodone to 2.5 mg every 4 hours as needed - therapy evaluations, continue - IS for associated atelectasis on imaging anticipate may need short term rehab lives alone; recently Status: Acute Plan 1. Reviewed impression with patient and son. 2. Answered their questions. 3. They are agreeable with above stated adjustments in analgesics. 4. Encourage patient to increase activities as tolerated. 5. Continue with plans as specified above. Time Spent With Patient Total time spent: 40 minute Subjective Time Seen by Provider: 10:30 Date Seen: 02/12/23 Interval history: Daily Progress Note - Hospital Medicine Day #: 4 CC: Right flank and right upper abdominal pain. Known liver subscapular hematoma. Slept well from 10:00 p.m. yesterday until late this morning. Required no analgesics during that time frame. He complains of intermittent spasm still. Reports poor appetite. Pain is reported as better. Notes that he is still rather sleepy from the analgesics. He tells me how historically when he has t aken Tylenol with opioids that he has had ?bad reactions. ? I asked him to expound on this in defers to his son to tell me about it, how the patient was profoundly weak and sleepy and tired. Hemoglobin has drifted from a 12.5 baseline down to 11. Her INR 1.2 Sodium has [address] abdomen 02/09 Demonstration of a small subcapsular fluid collection along the right liver which may represent a small subcapsular hematoma. No evidence of large liver laceration or hemorrhage. Grossly intact adjacent ribs. Incidental note made of right basilar pleural effusion with adjacent compressive atelectasis and/or infiltrates. CT abdomen pelvis 02/10 1. Small subcapsular fluid collection along lateral aspect of the right hepatic lobe unchanged. 2. Small right pleural effusion, increased. Exam Narrative: Exam Narrative: I examined in his room. He is laying in his bed and appears comfortable no acute distress. Vision and hearing are for the most part adequate. Does have decreased hearing. Sleepy but arousable. Able to engage in conversation. Alert and oriented to self, place, time, situation. Mood and affect are congruent. Lungs clear to auscultation. Heart tones with regular rhythm. Abdomen with active bowel sounds, soft. Moves all 4 extremities without focal motor neurologic deficits. Const: Vital Signs, click to edit/add: Vital Signs - 24 hr 02/11/23 17:08 02/11/23 17:09 02/11/23 20:05 Temperature 97.8 F 98.0 F Pulse Rate [Pulse Oximeter] 81 85 Respiratory Rate 20 20 18 Blood Pressure [Ri ght Arm] 128/72 120/60 Pulse Oximetry 92 92 99 Oxygen Delivery Me thod Room Air Room Air Room Air 02/11/23 22:56 02/11/23 22:56 02/11/23 22:56 Temperature 99.3 F Pulse Rate [Pulse Oximeter] 85 93 Respiratory Rate 18 16 16 Blood Pressure [Ri ght Arm] 118/66 Pulse Oximetry 93 96 Oxygen Delivery Me thod Room Air Room Air 02/12/23 02:15 02/12/23 08:00 02/12/23 08:00 Temperature 98.7 F 98.6 F Pulse Rate [Pulse Oximeter] 87 88 Respiratory Rate 16 20 20 Blood Pressure [Ri ght Arm] 112/57 L 120/61 Pulse Oximetry 92 94 94 Oxygen Delivery Me thod Room Air Room Air Room Air 02/12/23 12:00 Temperature 97.7 F Pulse Rate [Pulse Oximeter] 81 Respiratory Rate 18 Blood Pressure [Ri ght Arm] 103/64 Pulse Oximetry 94 Oxygen Delivery Me thod Room Air Labs Labs: Laboratory Results - last 24 hr 02/12/23 06:04 Hgb 11.0 L VBG pH 7.405 VBG pCO2 42 VBG pO2 42.0 VBG HCO3 26 Sodium 135 Potassium 4.5 Chloride 102 Carbon Dioxide 27 Anion Gap 6 L BUN 23 Creatinine 1.1 Estimated Creat Clear 50.24 Estimated GFR 66 Glucose 98 Calcium 8.7 C-Reactive Protein 15.9 H
--- NOTE | 2023-02-12 15:31 | PC.NURSE ---
Eitan by Dr. Romero, PT and OT this am. Please see Emar for medications provided on day shift for right sided pain management. Pt walked with Sharad in PT, primary RN and RETAIL MANAGEMENT TRAINEE for a total of 3 walks on day shift. Goal is 2 more walks prior to bedtime. Son Norman present most of the day at bedside. Pt is cooperative however slow to respond to requests by staff, well you shouldn't be surprised...I'm on drugs you know.... Report to [place] OLIVAS for evening shift.
[2023-02-12 19:00] VITALS: BP 117/73; PULSE 81; RESP 18; TEMP 36.9; O2SAT 97
[2023-02-12] MEDS: ACETAMINOPHEN 325 MG TABLET 650 MG PO ×2 (19:04→20:36)
[2023-02-12 23:00] VITALS: BP 124/69; PULSE 67; PULSE 81; RESP 18; TEMP 36.9; O2SAT 96
[2023-02-13 02:57] VITALS: PULSE 65; RESP 18; O2SAT 96
--- NOTE | 2023-02-13 04:19 | PC.NURSE ---
End of Shift: Pt pleasant and cooperative throughout shift, remained AO. Requested pills be crushed and with pudding, swallowing went well. Pt reports pills getting stuck when not crushed. Denied any pain while sitting still, reported pain between 3-5/10 generalized with movement. Pt SBA with walker, gait belt.
[2023-02-13 06:22] LABS: Hemoglobin* 11.1 gm/dL (13.5-17.5)
[2023-02-13 06:35] LABS: Sodium* 137 mmol/L (135-149)
[2023-02-13 07:00] VITALS: BP 120/68; PULSE 77; RESP 18; TEMP 37.1; O2SAT 93
[2023-02-13] MEDS: ACETAMINOPHEN 325 MG TABLET 650 MG PO ×3 (09:17→20:05)
[2023-02-13] MEDS: SODIUM CHLORIDE 0.9 % (FLUSH) 10 ML SYRINGE 5 ML IVF ×2 (09:19→20:06)
[2023-02-13 11:00] VITALS: PULSE 70; RESP 20; O2SAT 98
--- NOTE | 2023-02-13 14:29 | P.IMPN_ITS ---
Progress Note: A&P Assessment and plan (1) Subcapsular hematoma of liver: Problem details: - follow hemoglobin, INR, LFTs - pain control - schedule acetaminophen and decrease dose of oxycodone to 2.5 mg every 4 hours as needed - therapy evaluations, continue - IS for associated atelectasis on imaging anticipate may need short term rehab lives alone; recently Status: Acute (2) Unstable gait: Problem details: Acute on chronic. Broad-based gait. Status: Acute (3) Rib pain on right side: Problem details: attemp cxr again this afternoon Status: Acute (4) Muscle spasm: Status: Acute Plan 1. Reviewed impression with patient and his son. Answered their questions. 2. Recommended short-term rehabilitation stay which they are both agreeable to. 3. Continue to work with director of social work for possible discharge to transitional care services for short period of time before he returns home alone. 4. Patient family agreeable to above stated plans and recommendations. Time Spent With Patient Total time spent: 30 minutes Subjective Time Seen by Provider: 09:30 Date Seen: 02/13/23 Interval history: Daily Progress Note - Hospital Medicine Day #: 5 CC: Right flank and right upper abdominal pain. Known liver subscapular hematoma. With scheduled acetaminophen 650 mg 4 times daily and as needed oxycodone 2.5 mg q.4 hours, he is more awake, alert, able to transfer self and ambulate. He and his son are in agreement that his condition is much improved today compared to yesterday. Patient notes increased sense of anxiety and fear for falling. Continues to work with physical and occupational therapy. Has baseline difficulty swallowing with history of esophageal stricture. Takes his medicines crushed and with putting and does well with this. No aspiration, cough, nausea, vomiting, abdominal pain aside from the right-sided discomfort in association with the hepatic subcapsular hematoma. Hemoglobin has drifted from a 12.5 baseline down to 11.1. Her INR 1.2 when last checked. Sodium [address] abdomen 02/09 Demonstration of a small subcapsular fluid collection along the right liver which may represent a small subcapsular hematoma. No evidence of large liver laceration or hemorrhage. Grossly intact adjacent ribs. Incidental note made of right basilar pleural effusion with adjacent compressive atelectasis and/or infiltrates. CT abdomen pelvis 02/10 1. Small subcapsular fluid collection along lateral aspect of the right hepatic lobe unchanged. 2. Small right pleural effusion, increased. Exam Narrative: Exam Narrative: I examined patient in his hospital room and as he ambulates in the hallway. Awake, animated, interactive. Vision and hearing are grossly normal. Alert and oriented to self, place, time, situation. Friendly, articulate. Mood and affect congruent. Lungs clear to auscultation. Heart tones with regular rhythm. Abdomen with active bowel sounds. Extremities without edema. Able to transfer from supine to sitting in a matter of 15 seconds today were as yesterday it took upwards of 5 minutes. Able to transfer from sitting to standing in a matter of about 10 seconds, again yesterday it took almost 5 minutes for him to achieve this. Ambulates in the hallways with broad-based gait gait, mostly looking down at the ground. With direction he is able to hold his eyes and head up and walk more safely. Const: Vital Signs, click to edit/add: Vital Signs - 24 hr 02/12/23 15:00 02/12/23 15:00 02/12/23 19:00 Temperature 98.2 F 98.4 F Pulse Rate [Left A pical] Pulse Rate [Pulse Oximeter] 78 81 Respiratory Rate 18 18 18 Blood Pressure [Ri ght Arm] 108/62 117/73 Pulse Oximetry 95 97 97 Oxygen Delivery Me thod Room Air Room Air Room Air 02/12/23 23:00 02/12/23 23:00 02/12/23 23:00 Temperature 98.4 F Pulse Rate [Left A pical] Pulse Rate [Pulse Oximeter] 81 67 Respiratory Rate 18 18 18 Blood Pressure [Ri ght Arm] 124/69 Pulse Oximetry 96 96 Oxygen Delivery Ga thod Room Air Room Air 02/13/23 02:57 02/13/23 07:00 02/13/23 07:00 Temperature 98.8 F Pulse Rate [Left A pical] 77 Pulse Rate [Pulse Oximeter] 65 77 Respiratory Rate 18 18 18 Blood Pressure [Ri ght Arm] 120/68 Pulse Oximetry 96 93 93 Oxygen Delivery Ga thod Room Air Room Air Room Air 02/13/23 11:00 Temperature Pulse Rate [Left A pical] Pulse Rate [Pulse Oximeter] 70 Respiratory Rate 20 Blood Pressure [Ri ght Arm] Pulse Oximetry 98 Oxygen Delivery Me thod Room Air Documenting provider has reviewed patient's vital signs: yes Labs Labs: Laboratory Results - last 24 hr 02/13/23 06:02 Hgb 11.1 L Sodium 137
[2023-02-13 15:00] VITALS: BP 117/65; PULSE 62; PULSE 74; RESP 18; TEMP 36.6; O2SAT 95
--- NOTE | 2023-02-13 15:55 | PC.SOCIAL ---
Discharge planning: Met with dtr in law in room regarding d/c plan. She states family is located in the [place] and [place] areas. So, placement in the [place] or [place] area would be preferable to the [place] area. Called [facility] and there were not rehab beds available. Called [facility] in [place] and left a message and faxed information for evaluation for admit. optical worker to follow up as needed.
--- NOTE | 2023-02-13 16:13 | PC.NURSE ---
Eitan by PT, OT and Dr. Romero. Son Norberto present and supportive at bedside for the majority of the shift. Please see eMar for meds provided by primary RN for pain management. Pt slept well after mid-morning therapy session. VS wnl parameters. Plan SNF placement for rehab and strengthening. Pt's demeanor is more cooperative than yesterday. He takes his pills crushed in vanilla pudding. Speech is less delayed. Report to Iesha OLIVAS for evening shift.
[2023-02-13 19:00] VITALS: BP 126/65; PULSE 75; RESP 18; TEMP 36.4; O2SAT 96
--- NOTE | 2023-02-13 22:50 | PC.NURSE ---
End of Shift: Pt pleasant and cooperative throughout shift, remained AO. Refused 1700 tylenol as he was not experiencing any discomfort at that time. Requested tylenol before HS at 2000 and ice for left knee. Pain rated at a 3/10. Pt continent with bladder, no BM throughout shift. Family in room for most of shift. Pt tolerating regular diet well and reports feeling much better with the tylenol for pain control.
[2023-02-13 23:00] VITALS: BP 117/54; PULSE 72; RESP 14; TEMP 36.5; O2SAT 98
[2023-02-14 03:00] VITALS: BP 126/74; PULSE 74; RESP 18; TEMP 37; O2SAT 96
[2023-02-14] MEDS: ACETAMINOPHEN 325 MG TABLET 650 MG PO ×2 (06:26→11:50)
--- NOTE | 2023-02-14 06:36 | PC.NURSE ---
End of shift: Pleasant and cooperative with cares. Alert and oriented x 4. Pain reported to left knee and right chest wall, patient requesting tylenol. Patient received 0900 tylenol at 0630 for discomfort. Bowel sounds active x 4. Continent of bladder and bowel. Slept well throughout the shift.
[2023-02-14 07:46] VITALS: BP 127/72; PULSE 78; RESP 16; TEMP 36.8; O2SAT 99
[2023-02-14 07:50] VITALS: O2SAT 99
[2023-02-14] MEDS: SODIUM CHLORIDE 0.9 % (FLUSH) 10 ML SYRINGE 5 ML IVF (08:29)
[2023-02-14] MEDS: SENNOSIDES/DOCUSATE TABLET 1 TAB PO (08:29)
[2023-02-14 11:53] VITALS: BP 117/61; PULSE 65; RESP 16; TEMP 36.7; O2SAT 94
--- NOTE | 2023-02-14 12:32 | PC.NURSE ---
Patient discharged home self care with family support. Patient tolerating a regular diet. Passing flatus and urine. VSS. Alert and oriented. Ambulated independently. Patient stated he feels he is back to baseline and son, Norberto, agreed. pain managed with PO tylenol. Tylenol options reviewed with patients son as patient has a hard time swollowing pills. All questions answered. PIV taken out and catheter intact. Lung sounds clear. using IS. Left via wheelchair escort with son Norberto.
--- NOTE | 2023-02-14 15:33 | P.DS_ITS ---
DS: Providers Provider Time Seen by Provider: 10:00 Date Seen: 02/14/23 Date of admission: 02/12/23 14:39 Primary care physician: Oswald Saul MD Admitting Clinician: Ashely Vickers MD Consults: 02/09/23 18:39 Consult to Physical Therapy [CONS] Routine Comment: Reason(s) for PT Consult:: Evaluate and Treat Any Restrictions?:: No Restrictions 02/09/23 18:41 Consult to Occupational Therapy [CONS] Routine Comment: Reason(s) for OT Consult:: Evaluate and Treat Any Restrictions?:: No Restrictions 02/09/23 20:38 Consult to Physical Therapy [CONS] Routine Comment: Reason(s) for PT Consult:: Evaluate and Treat Any Restrictions?:: No Restrictions Attending Physician on discharge: Hayden Romero MD Date of Discharge: 02/14/23 DS: Diagnosis Discharge Diagnosis (1) Subcapsular hematoma of liver: Status: Acute Problem details: - follow hemoglobin, INR, LFTs - pain control - schedule acetaminophen and decrease dose of oxycodone to 2.5 mg every 4 hours as needed - therapy evaluations, continue - IS for associated atelectasis on imaging anticipate may need short term rehab lives alone; recently (2) Rib pain on right side: Status: Acute Problem details: attemp cxr again this afternoon (3) Muscle spasm: Status: Acute (4) Unstable gait: Status: Acute Problem details: Acute on chronic. Broad-based gait. (5) Medication adverse effect: Status: Acute Problem details: Marked somnolence and confusion from low to modest dose of oxycodone, typical to prior reactions he has had with other opioids. (6) Adverse effect of other opioids, initial encounter: Status: Acute Problem details: During hospitalization from 02/09 to 02/14/2023, patient received oxycodone for pain control and had marked somnolence and confusion in consequence of the same, which resolved upon discontinuation of the oxycodone. DS: Summary Hospital Course Hospital Course: History of present illness: Young Coles is a 83 year old male who presented to the ED with his son this afternoon for concerns of right sided chest pain after a muscular injury at home. Three days ago, he was leaning with his right side over his truck and reaching for something. He had mild discomfort at the time, which has worsened throughout the last few days. Young describes the pain as a spasm in his right upper quadrant. He has not found any helpful remedies at home and he has not been able to sleep secondary to pain. No fever or symptoms of illness. Does occasionally feel chilled with his pain flares. Today, he was having difficulty breathing secondary to discomfort and called his PCPs office, who recommended ED visit. ER course and findings: - CT revealed a small subcapular fluid collection along the right liver, concerning for hematoma - No large liver laceration or hemorrhage, no known rib fractures - Incidentally right basilar pleural effusion with compressive atelectasis and/or infiltrates - hemodynamically stable - could not achieve pain control for discharge; patient received IV fentanyl and lorazepam but still was unable to ambulate - general surgery consulted, recommends monitoring and pain control Initially attempted to control pain with as needed acetaminophen and hydromorphone. Although the pain was in great measure treated sufficiently with the use of as needed hydromorphone and acetaminophen, he became markedly confused and tired and weak in consequence of these medications. He and his son's thought for sure was the acetaminophen. We discussed this and they were agreeable to attempt schedule acetaminophen and only as needed oral oxycodone at a low dose of 2.5 mg p.o. q.4 hours. Once we stopped using the opioids, his mentation rapidly normalized, and his weakness rapidly resolved. He was then able to demonstrate clearly his independence. Thus he is discharged home with follow-up as indicated. Status at Discharge Functional status at discharge: independent ambulation Overall status at discharge: patient is progressing back to baseline Time Spent with Patient Time attestation: Total time spent providing and/or coordinating discharge services: Time spent: Greater than 30 minutes Exam Narrative: Exam Narrative: I examined patient in his hospital room and as he ambulates in the hallway. Awake, animated, interactive. Vision and hearing are grossly normal. Alert and oriented to self, place, time, situation. Friendly, articulate. Mood and affect congruent. Lungs clear to auscultation. Heart tones with regular rhythm. Abdomen with active bowel sounds. Extremities without edema. His much more stable and confident with transfer, station, and gait. His movements are more fluid. He indicates he feels back to baseline. His son indicates that his father appears to be back to baseline in his ability to move and such. Const: Vital Signs, click to edit/add: Vital Signs - 24 hr 02/13/23 19:00 02/13/23 23:00 02/13/23 23:00 Temperature 97.6 F 97.7 F Pulse Rate [Left A pical] Pulse Rate [Pulse Oximeter] 75 72 Respiratory Rate 18 14 14 Blood Pressure [Ri ght Arm] 126/65 117/54 L Pulse Oximetry 96 98 98 Oxygen Delivery Me thod Room Air Room Air Room Air 02/14/23 03:00 02/14/23 07:46 02/14/23 07:50 Temperature 98.6 F 98.3 F Pulse Rate [Left A pical] 78 Pulse Rate [Pulse Oximeter] 74 Respiratory Rate 18 16 Blood Pressure [Ri ght Arm] 126/74 127/72 Pulse Oximetry 96 99 99 Oxygen Delivery Me thod Room Air Room Air Room Air 02/14/23 11:53 Temperature 98.1 F Pulse Rate [Left A pical] 65 Pulse Rate [Pulse Oximeter] Respiratory Rate 16 Blood Pressure [Ri ght Arm] 117/61 Pulse Oximetry 94 Oxygen Delivery Me thod Room Air Documenting provider has reviewed patient's vital signs: yes DS: Data Imaging CT scan - abdomen: Attestation: I have reviewed the pertinent imaging results. Radiologist's impression: 02/09/2023 Impression: Demonstration of a small subcapsular fluid collection along the right liver which may represent a small subcapsular hematoma. No evidence of large liver laceration or hemorrhage. Grossly intact adjacent ribs. Incidental note made of right basilar pleural effusion with adjacent compressive atelectasis and/or infiltrates. No other acute abnormalities are appreciated. 02/10/2023 IMPRESSION: 1. Small subcapsular fluid collection along lateral aspect of the right hepatic lobe unchanged. 2. Small right pleural effusion, increased. Discharge Plan Discharge Disposition: Home, Self-Care Date of Admission: 02/12/23 14:39 Attending Provider on Discharge: Hayden Romero Primary Care Provider: Oswald Saul Condition: Improved Anticipated Discharge Date/Time: 02/14/23 12:30 Discharge Medications: New acetaminophen 325 mg Tablet 650 mg PO QID 10 Days Qty: 80 0RF Discharge Orders: Discharge Order (Routine); Ordered 02/14/23 Ordered By: aHyden Romero Patient Education: Acetaminophen (By mouth), Contusion in Adults (DC), Hematoma (ED) Additional Instructions: 1. Family to assist with support for next 2-5 days; 2. Return for re-assessment if develop fever, uncontrolled pain, or other unusual symptoms. Activity Level: No Restrictions, Activity as Tolerated and Other Activity Detail: Avoid jarring events, blunt trauma, or heavy pressure to area of involvement of right chest and abdomen. Discharge Diet: Regular Follow Up Appointments: Oswald Saul MD [Primary Care Provider] - (follow-up with Dr. Saul or one of his colleagues in 2-7 days) Enoch Shaw MD [Referring] - 02/20/23 2:30 pm ([facility] for follow-up.) Forms: besomebody. Info Instructions
== END 2023-02-14 12:30 | disposition home or self-care (01) | DRG 442 ==
LOC: ED 17:11 → MEDSURG 17:34
PROVIDERS: Family Medicine; Hospitalist; Internal Medicine; Admitting Provider Family Medicine; Emergency Provider Family Medicine; PCP Family Medicine; Visit Provider Family Medicine
DX: S36.112A Contusion of liver, initial encounter (principal); J98.11 Atelectasis; R07.81 Pleurodynia; R25.2 Cramp and spasm; R26.9 Unspecified abnormalities of gait and mobility; T40.2X5A Adverse effect of other opioids, initial encounter; R40.0 Somnolence; R41.0 Disorientation, unspecified
CPT/HCPCS: 36415; 71045; 74160; 74176; 80048; 80053; 80076; 82803; 84295; 85018; 85025; 85610; 86140; 94761; 97110; 97112; 97116; 97162; 97165; 97530; 97535; 99284; 99285; A9270; G0378; J1170; J2060; J2270; J3010; J7030; Q9967

== ENCOUNTER 2025-05-22 18:20 | Emergency (ER) | payer MEDICARE, BC, SELFPAY ==
[2025-05-22 18:23] VITALS: BP 138/69; PULSE 74; RESP 16; TEMP 37.1; O2SAT 95; BMI 24.4
--- OUTSIDE RECORDS SUMMARY | 2025-05-22 18:23 | XMS_ITS | Clinical Summary ---
Author Organization [facility] Address [address] [place] [id number] Care Team Providers Care Strategic Planning Manager Name Role Phone Oswald Saul MD Primary Care Provider Allergies Active Allergy Reactions Criticality Noted Date Comments Qhdwqvb-Fwx-Dx-Acetaminophen 011 Cyclobenzaprine Bradycardia,Confusion 1 flexeril Medications cholecalciferol (VITAMIN D) 1,000 unit tablet Take 1 tablet by mouth once daily. 0 7 Active ascorbic acid, vitamin C, (VITAMIN C) 500 mg tablet Take 1 tablet by mouth once daily. 0 7 Active acetaminophen (TYLENOL) 325 mg tablet Take 650 mg by mouth every 6 hours. 3 Active sildenafil citrate (VIAGRA) 50 mg tabletIndication s:Erectile dysfunction, unspecified erectile dysfunction type Take 1 Tablet (50 mg) by mouth once daily if needed for Erectile Dysfunction. Take 30min to 4 hours before sexual activity. Max 100mg/24hr 30 Tablet 5 3 Active Active Problems Problem Noted Date Diagnosed Date Erectile dysfunction 04/02/2015 Schatzki's ring 09/10/2012 Umbilical hernia without mention of obstruction or gangrene 09/10/2012 Colon polyp 2012 Overview (2012): Colonoscopy 12/2011 large polyp repeat in 3 years Umbilical hernia 11/24/2011 Immunizations Immunization Administration Dates Next Due COVID-19 vaccine (EndoShape 30mcg/0.3mL) LIBBY Stokes 04/14/2021 Influenza, High-dose Inactivated 06/30/2016 Influenza, Inactivated AIIV4 (Age 65+ Years) Preserv Free 03/22/2023,04/14/2021 Influenza, Inactivated IIV3 (Age 65+ Years) Preserv Free 06/19/2018 Pneumococcal Poly,23-Valent (Pneumovax) 06/19/19 19 Pneumococcal conj 13-Valent (Prevnar 13) 017 Tdap 08/01/2010 Family History Medical History Relation Name Comments Good Health Father at age 93 of old age Anesthesia Problem Neg. Relation Name Status Comments Father Neg. Social History Tobacco Use Types Packs/Day Years Used Date Smoking Tobacco: Never Smokeless Tobacco: Never Tobacco Cessation:Counseling Given: No Alcohol Use Standard Drinks/Week Comments No 0 (1 standard drink = 0.6 oz pur e alcohol) PHQ-2 Answer Date Recorded PHQ-2 Score 0 08/18/2018 Social Connections Answer Date Recorded Frequency of Communication with Friends and Fami ly 0 03/22/2023 Financial Resource Strain Answer Date R ecorded Difficulty of Paying Living Expenses 3 03/22/2023 Difficulty of Paying Living Expenses Not on file 03/22/2023 Food Insecurity Answer Date Recorded Worried About Running Out of Food in the Last Ye ar 1 03/22/2023 Transportation Needs Answer Date Record ed Lack of Transportation (Medical) 1 03/22/2023 Housing Stability Answer Date Recorded Unable to Pay for Housing in the Last Year 1 03/22/2023 Sex and Gender Information Value Date Recorded Sex Assigned at Not on file Legal Sex Male 5:40 AM [employer]BMAR[employer] Gender Identity Not on file Sexual Orientation Not on file Occupation Industry Job Start Date Job End Date Retired Not on file Not on file Not on file Obstetrics History Last Filed Vital Signs Vital Sign Reading Time Taken Comments Blood Pressure 129/60 11/01/2023 10:34 AM CDT Pulse 78 11/01/2023 10:34 AM CDT Temperature 36.3 C (97.3 F) 11/01/2023 10:34 AM CDT Respiratory Rate 14 11/01/2023 10:34 AM CDT Oxygen Saturation 96% 11/01/2023 10:34 AM CDT Inhaled Oxygen Concentration - - Weight 73.5 kg (162 lb) 11/01/2023 10:34 AM CDT Height 182.9 cm (6') 11/01/2023 10:34 AM CDT Body Mass Index 21.97 11/01/2023 10:34 AM CDT Plan of Treatment Health Maintenance Due Date Last Done Comments Zoster (shingles) series for age 50+ (1 of 2) 01/06/1988 Medicare Wellness for age 65+ 2003 RSV vaccine for adults or (1 - 1-dose 75+ series) 2013 Depression screening for age 12+ 06/21/2019 06/21/2018, 06/21/2018, 06/20/2018, Additional history exists Tetanus booster 08/01/2020 08/01/2010 BMI (ht and wt on same day) for age 18+ 10/31/2024 11/01/2023, 02/20/2023, 06/19/2018, Additional history exists COVID-19 vaccine series ( season) 2025 04/14/2021, 08/24/2020, 08/03/2020 Influenza Vaccine (#1) 2025 , 04/14/2021, 06/19/2018, Additional history exists Pneumococcal series for age 50+ Completed 06/19/2018, 06/30/2016 Hepatitis B series for 19+ Aged Out N o longer eligible based on patient's age to complete this topic Insurance MEDICARE PB ONLY [facility] MEDICARE PART B HB ONLY Care Teams Strategic Planning Manager Relationship Specialty Start Date End Date Oswald Saul MD [address] [facility] [place] [id number] PCP - General 10/20/05
--- NOTE | 2025-05-22 18:50 | CRLHL7_ITS ---
For Patients: As a result of the Century Cures Act, medical imaging exams and procedure reports are released immediately into your electronic medical record. You may view this report before your referring provider. If you have questions, please contact your health care provider. Indication: Trauma. Technique: Three views of the left ankle. Comparison: None. Findings/Impression: Soft tissue swelling of the ankle, more prominent laterally. No definite acute fracture appreciated. No dislocation or suspicious osseous lesion. The talar dome maintains its normal contour without evidence of osteochondral injury. Prominent vascular calcifications. Dictated by aKvin Garduno MD @ 05/22/2025 7:27:11 PM (Electronically Signed)
--- NOTE | 2025-05-22 18:50 | CRLHL7_ITS ---
For Patients: As a result of the Cures Act, medical imaging exams and procedure reports are released immediately into your electronic medical record. You may view this report before your referring provider. If you have questions, please contact your health care provider. Indication: Trauma. Technique: PA view of the chest with three views of the right ribs. Comparison: Chest x-ray 10/23/2022. Findings/Impression: The heart is not abnormally enlarged. Mediastinal contours are grossly within normal limits. No definite confluent airspace opacity. Trace right pleural effusion. No pneumothorax. Questionable nondisplaced fractures of the right posterior 7th through 9th ribs. Dictated by Kavin Garduno MD @ 05/22/2025 7:29:55 PM (Electronically Signed)
--- NOTE | 2025-05-22 19:31 | ED_ITS ---
HPI - General Adult General Chief complaint: Extremity Pain/Injury, Lower Stated complaint: hurt left leg Time Seen by Provider: 05/22/25 18:41 History of Present Illness HPI narrative: 85-year-old male presents with his son for evaluation of a fall onto his left side about 2 hours prior to arrival. Patient was getting into his skid cooler conveyor loader, from the front. He thinks he had a mass of snow caked on his boot. When he went to step with his left foot to get in to the skid cooler conveyor loader, his foot slipped off, causing him to fall from a standing height onto the ground. He landed on his left side. He now has pain in his left ankle and knee area. He thinks his foot might have gotten stuck in the skid cooler conveyor loader, twisted the knee falling down. Pain is nonfocal in the knee, maybe a little more towards the back but no pinpoint. No swelling noted. It spares the left ankle though he has pain specifically inferior and medial to the distal lateral malleolus. Some swelling is noted in the area. Has normal flexion and extension of the ankle. He can bear weight but it is painful to do so. He reports the getting in the truck to come here, he did slip on the ice and fall onto his right side again but does not think he sustained any new injuries. Did not hit his head. He is not anticoagulated. Denies alcohol or other substance intoxication contributing to the fall today. Son has checked him over, agrees that he is mentating at baseline. No pain in the left hip, no pain in either shoulder. No abdominal pain, headache or focal neurological changes. Has not taken any medication to help with symptoms. Reports that his past medical history is benign, does not have major long-term health problems. Does not take any prescription medications, no allergies. Does not smoke. ROS is notable for the pain on the left knee and ankle, otherwise denies times 12 systems. Related Data Previous Rx's ?Medication ?Instructions ?Recorded acetaminophen 325 mg tablet 650 mg (2 x 325 mg) PO QID 10 days 02/14/23 #80 tabs Allergies Allergy/AdvReac Type Severity Reaction Status Date / Time No Known Drug Allergies Allergy Verified 05/22/25 18:31 [facility] Medical History Schatzki's ring ?K22.2 - Esophageal obstruction (ICD-10) Esophageal obstruction due to food impaction ?K22.2 - Esophageal obstruction (ICD-10) ?T18.128A - Food in esophagus causing other injury, initial encounter (ICD- 10) COVID-19 virus infection ?U07.1 - COVID-19 (ICD-10) Surgical History S/P ORIF (open reduction internal fixation) fracture ?Z98.890 - Other specified postprocedural states (ICD-10) ?Z87.81 - Personal history of (healed) traumatic fracture (ICD-10) History of cataract surgery ?Z98.49 - Cataract extraction status, unspecified eye (ICD-10) Hx of hernia repair ?Z98.890 - Other specified postprocedural states (ICD-10) ?Z87.19 - Personal history of other diseases of the digestive system (ICD-10) Hx of cholecystectomy ?Z90.49 - Acquired absence of other specified parts of digestive tract (ICD- 10) Hx of appendectomy ?Z90.49 - Acquired absence of other specified parts of digestive tract (ICD- 10) Social History Narrative: Lives independently. since summer 2022. Has three adult sons would share medical decision making duties if needed. Retired [employer]. No concerning tobacco or ETOH use. Full Code but would not want to be on a machine for any extended period of time. What is your current living situation?: I presently have a place to live Problems where you live: no known problems Problems where you live details: NA In the past 12 months, utilities in danger of being shut off: no In past 12 months, lack of transportation kept you from medical appts, meetings, work, or getting things needed for daily living: no In the past 12 mos, have been you worried that your food would run out before you had money to buy more?: never true In the past 12 mos, the food you bought just didn't last and you didn't have money to buy more?: never true Highest level of school completed/degree received: Associate degree: occupational, technical, vocational program Smoking Status: Never smoker Do you use any of these nicotine containing products: None Second hand tobacco smoke exposure: No How often do you have a drink containing alcohol: never How often do you have six or more drinks on one occasion: Never AUDIT-C Alcohol total score: 0 Non-prescribed substance use: denies use Caffeine: Yes How often does anyone, including family, friends and others, physically hurt you : never How often does anyone, including family, friends and others, insult or talk down to you: never How often does anyone, including family, friends and others, threaten you with harm: never How often does anyone, including family, friends and others, scream or curse at you: never service: Yes Exam Const: Vital Signs, click to edit/add: Vital Signs - 24 hr 05/22/25 18:23 05/22/25 20:22 05/22/25 20:33 Temperature 98.7 F 98.7 F 98.7 F Pulse Rate [Pulse Oximeter] 74 68 68 Respiratory Rate 16 16 16 Blood Pressure [Le ft Upper Arm] 138/69 131/78 131/78 Pulse Oximetry 95 95 Oxygen Delivery Me thod Room Air Room Air Common normals: no apparent distress General appearance: cooperative and well kempt Other: Friendly and cooperative. Normal mentation. Good historian. HENMT: Common normals: normocephalic, nasal mucous membranes and turbinates normal, moist oral mucous membranes and oropharynx normal Head and scalp: normocephalic Nose: nasal mucous membranes and turbinates normal Mouth: oral and palatal mucosa normal Eye: Common normals: PERRL, EOMs intact bilaterally and conjunctivae normal General eye: normal appearance of both eyes Conjunctiva: conjunctiva(e) normal Pupil: PERRL Neck & C-Spine: Common normals: full ROM and no lymphadenopathy General: normal visual inspection Cervical spine: cervical ROM normal Chest: Common normals: inspection of chest normal Other: Tenderness to palpation of right lateral ribs. No crepitus, bruising or deformity. Resp: Common normals: normal respiratory effort, no use of accessory muscles and clear to auscultation bilaterally Effort & inspection: able to speak in complete sentences Auscultation: clear to auscultation bilaterally Cardio: Common normals: regular rate, regular rhythm, S1 normal heart sound, S2 normal heart sound and no murmurs Rate: regular rate Rhythm: regular rhythm Heart sounds: S1 normal and S2 normal GI: Common normals: Normal to inspection, nondistended, normoactive bowel sounds present, soft to palpation, non-tender, no hepatosplenomegaly and no masses Palpation: soft and no hepatosplenomegaly Back & Pelvis: Common normals: thoracic and lumbar spine normal to inspection and no thoracic nor lumbar tenderness Extremity: Other: Left hip with normal range of motion, no point bony tenderness. Left knee with normal range of motion, no swelling, no point bony tenderness. No ligamentous instability, negative varus and valgus maneuvers. Left ankle with some mild soft tissue swelling inferior and anterior to the distal lateral malleolus. Normal flexion and extension of the left ankle, tenderness with inversion but not eversion. Normal pulses. Normal range of motion of toes without tenderness. No tenderness to the heel, medial malleolus or base of the 5th metatarsal. Opposite right foot, ankle, knee and hip with normal range of motion, no visible deformity. Neuro: Common normals: CN's II-XII intact bilaterally, moves all extremities and no focal motor deficits Speech: speech normal Motor exam: strength 5/5 throughout Psych: Appearance: well kempt Attitude: engaged Activity/motor behavior: appropriate eye contact Insight: insight good Judgement: judgment good Skin: Common normals: no rashes or lesions noted Narrative: No broken skin, bruising or open lacerations. General skin exam: no rashes or lesions noted Course Course ED Course: 85-year-old male with fall from standing height onto snowy ground, now pain on the left ankle and knee area. Tenderness and palpation to the right ribs concerning as well. Range of motion of hips reassuring, low suspicion for any abdominal, head or pelvic pathology. Patient declines pain medication. Recommended x-ray of left ankle and right ribs. Patient agreeable to this. Blood work that indicated, no syncope or prodromal symptoms prior to slipping off of the friend rail of the skid cooler conveyor loader. Reevaluation(s) Reevaluation #1: Update: X-ray the ankle is reassuring, does not show any signs of fracture but there is some soft tissue swelling. Counseled patient and his son that there could certainly be some ligamentous or tendon damage in this area. Recommended a Cam walker boot. Counseled to take this off for sleep and or rest. Encourage d use of a 4 point cane for the next 2 weeks while wearing the cam walker boot prior to orthopedic follow-up. This will help stabilize ambulation and reduce the risk of further fall. Can should be used on the left side. Discussed rib fractures. These are not displaced, there is no signs of underlying pulmonary injury, pneumothorax or other abnormality. I think these can be managed conservatively. We discussed Tylenol and ibuprofen as needed for discomfort. Encouraged deep breathing and frequent ambulation. Alarm symptoms reviewed that would warrant ED re-evaluation. Nursing team to fit cam walker boot, try to ambulate patient in let me know if there are any issues. Patient will arrange is own follow-up with primary care or Orthopedics in 2 weeks to have boot removed and see how things are healing. Consider orthopedic consult, MRI or other intervention if not improving as expected. Alarm symptoms reviewed, written instructions provided. All questions answered. Vital Signs Vital signs: Initial Vital Signs Temperature 98.7 F 05/22/25 18:23 Temperature Source Temporal Artery Scan 05/22/25 18:23 Pulse Rate 74 05/22/25 18:23 Respiratory Rate 16 05/22/25 18:23 Blood Pressure 138/69 05/22/25 18:23 Blood Pressure Mean 92 05/22/25 18:23 Blood Pressure Position Sitting 05/22/25 18:23 Pulse Oximetry 95 05/22/25 18:23 Oxygen Delivery Method Room Air 05/22/25 18:23 Vital Signs Temperature 98.7 F 05/22/25 18:23 Pulse Rate 74 05/22/25 18:23 Respiratory Rate 16 05/22/25 18:23 Blood Pressure 138/69 05/22/25 18:23 Pulse Oximetry 95 05/22/25 18:23 Oxygen Delivery Method Room Air 05/22/25 18:23 Temperature 98.7 F 05/22/25 20:33 Pulse Rate 68 05/22/25 20:33 Respiratory Rate 16 05/22/25 20:33 Blood Pressure 131/78 05/22/25 20:33 Pulse Oximetry 95 05/22/25 20:22 Oxygen Delivery Method Room Air 05/22/25 20:22 Medications Administered Medications: Discontinued Medications Generic Name Dose Route Start Last Admin Trade Name Freq PRN Reason Stop Dose Admin Acetaminophen 1,000 mg 05/22/25 19:50 05/22/25 20:22 Acetaminophen 500 Mg Tablet PO 05/22/25 19:51 Not Given ONCE ONE Ibuprofen 600 mg 05/22/25 19:50 05/22/25 20:22 Ibuprofen 200 Mg Tablet PO 05/22/25 19:51 Not Given ONCE ONE Medical Decision Making Imaging Data X-ray left ankle: Attestation: I have reviewed the pertinent imaging results. My impression: No signs of fracture. Some soft tissue swelling your base of distal fibula Radiologist's impression: Findings/Impression: Soft tissue swelling of the ankle, more prominent laterally. No definite acute fracture appreciated. No dislocation or suspicious osseous lesion. The talar dome maintains its normal contour without evidence of osteochondral injury. Prominent vascular calcifications. Dictated by Kavin Garduno MD @ 05/22/2025 7:27:11 PM Chest x-ray: Attestation: I have reviewed the pertinent imaging results. My impression: Subtle lower right rib fractures posteriorly. No evidence pneumothorax. Radiologist's impression: Findings/Impression: The heart is not abnormally enlarged. Mediastinal contours are grossly within normal limits. No definite confluent airspace opacity. Trace right pleural effusion. No pneumothorax. Questionable nondisplaced fractures of the right posterior 7th through 9th ribs. Dictated by Kavin Garduno MD @ 05/22/2025 7:29:55 PM Discharge Plan Discharge Clinical Impression: Right rib fracture, Left ankle sprain Patient Disposition: Home w/ Parent or Adult Condition: Stable Instructions: Ankle Sprain (ED), Rib Fracture (ED) Additional Instructions: As we discussed, you have 3 small cracks of your right ribs in the back. This is pretty common to have several in a row but they are not displaced and there are no signs of significant injury to the underlying lung. Your oxygen levels look good. Remember to keep working on taking deep breath 5 in a row and then blowing all of the air out of your chest every 3 hours while awake to help reduce the chance of complications. For pain, I recommend Tylenol 1000 mg 3 times daily and or ibuprofen 600 mg 2-3 times daily with food. The ankle does not appear to have any signs of fractures but I do think that there is a sprain which is a tear or over stretching of the tendons and ligaments. I have placed you in a boot to wear for the next couple of weeks and would like for you to follow-up in the clinic to recheck things. I strongly recommend that you use a 4 point cane on the left side to help you get around. You may take the boot off to sleep and while at rest but I would prefer that you wear it while up and walking around. Please call the clinic to schedule follow-up appointment with your primary care provider in 2 weeks to have the ankle recheck. They may refer you to orthopedics if needed. An MRI could show S these changes as well but is unlikely to be helpful as often these ligaments and tendons can heal on their own. You should return to the emergency department if you have significant change in function, pain or other symptoms. The knee does seem like it has a mild sprain as well but no signs of significant swelling or fracture. I do not recommend further workup on this. This is similar to the hip and shoulders. But if you notice significant changes in her overall function, please have these re- evaluated. Activity Level: Activity as Tolerated and Weight Bearing as Tolerated Discharge Diet: Regular Prescriptions: No Action acetaminophen 325 mg Tablet 650 mg PO QID 10 Days Qty: 80 0RF Follow Up/Referrals: Oswald Saul MD [Primary Care Provider, Family Practice] Stand Alone Forms: Virtual DBS Info Instructions
[2025-05-22 20:22] VITALS: BP 131/78; PULSE 68; RESP 16; TEMP 37.1; O2SAT 95
[2025-05-22 20:33] VITALS: BP 131/78; PULSE 68; RESP 16; TEMP 37.1
== END 2025-05-22 20:34 | disposition home or self-care (01) ==
PROVIDERS: Emergency Provider Family Medicine; PCP Family Medicine
DX: S22.41XA Multiple fractures of ribs, right side, initial encounter for closed fracture (principal); S93.402A Sprain of unspecified ligament of left ankle, initial encounter; W31.89XA Contact with other specified machinery, initial encounter
CPT/HCPCS: 71101; 73610; 99283; 99284